=== PATIENT | male | born 1965 | race Caucasian/White ===

== ENCOUNTER 2025-01-31 21:28 | Emergency (ER) | payer SELFPAY ==
[~2025-01-31] VITALS: Ht 188 cm; Wt 104.0 kg
[2025-01-31 21:45] VITALS: O2SAT 98
[2025-01-31 23:09] LABS: CLARITY URINE CLEAR (CLEAR); COLOR URINE YELLOW (YELLOW); GLUCOSE URINE NEGATIVE (NEGATIVE); KETONES URINE TRACE (NEGATIVE); LEUKOCYTE ESTERASE URINE NEGATIVE (NEGATIVE); NITRITE URINE NEGATIVE (NEGATIVE); OCCULT BLOOD URINE 3+ (NEGATIVE); PROTEIN URINE 1+ (NEGATIVE); SPECIFIC GRAVITY URINE 1.023 (1.005-1.030)
[2025-01-31 23:29] LABS: BACTERIA URINE 1+; RBC URINE 50-100 /hpf (0-2); SQUAMOUS EPITHELIAL CELL URINE FEW /lpf (RARE/1+); WBC URINE 0-2 /hpf (0-2)
[2025-01-31] MEDS: KETOROLAC 30MG/ML VIAL IM ONE (23:39)
[2025-01-31] MEDS ORDERED: CLONIDINE 0.2MG TABLET PO ONE (23:45)
[2025-02-01 00:01] LABS: HEMATOCRIT. 45.9 % (42.0-52.0); HEMOGLOBIN. 15.6 g/dL (14.0-18.0); MEAN CORPUSCULAR HEMOGLOBIN 31.3 pg (28.0-32.0); MEAN CORPUSCULAR VOLUME 92.3 fL (80.0-94.0); MEAN PLATELET VOLUME 8.6 fl (7.4-10.4); PLATELET 211 x1000/uL (130-400); RED BLOOD CELL COUNT 4.97 mill/uL (4.7-6.1); RED CELL DISTRIBUTION WIDTH 13.9 % (11.6-14.6); WHITE BLOOD COUNT 10.5 x1000/uL (4.5-11.0)
[2025-02-01 00:05] LABS: CHLORIDE 104 mEq/L (98-107); POTASSIUM 4.5 mEq/L (3.5-5.1); SODIUM 141 mEq/L (136-145)
[2025-02-01 00:06] LABS: CARBON DIOXIDE 27 mEq/L (21-32)
[2025-02-01 00:07] LABS: CALCIUM 9.6 mg/dL (8.7-10.4)
[2025-02-01 00:08] LABS: DIFFERENTIAL COMMENT 1
[2025-02-01 00:11] LABS: CREATININE 1.5 mg/dL (0.6-1.3); GLUCOSE 158 mg/dL (70-105)
[2025-02-01 00:12] LABS: UREA NITROGEN BLOOD 23 mg/dL (9-23)
[2025-02-01 00:13] LABS: ALANINE AMINOTRANSFERASE 29 IU/L (10-49); ALBUMIN 4.6 g/dL (3.2-4.8); ASPARTATE AMINOTRANSFERASE 25 IU/L (<34)
[2025-02-01 00:14] LABS: BILIRUBIN DIRECT 0.2 mg/dL (<=3.0); BILIRUBIN TOTAL 0.7 mg/dL (0.1-1.0); PROTEIN TOTAL 7.4 g/dL (6.0-8.3)
[2025-02-01] MEDS: CLONIDINE 0.1MG TABLET PO NR (00:37)
[2025-02-01] MEDS ORDERED: IBUP-2028 MT (01:13)
[2025-02-01] MEDS ORDERED: TAMS-54 MT (01:19)
[2025-02-01 01:30] VITALS: BP 118/79; PULSE 80; RESP 16; TEMP 36.6; O2SAT 98
[2025-02-01 05:03] LABS: PLATELET ESTIMATE NORMAL
== END 2025-02-01 01:30 | disposition home or self-care (01) ==
LOC: ER 21:28
DX: N20.0 Calculus of kidney (principal); I10 Essential (primary) hypertension; Z79.899 Other long term (current) drug therapy
CPT/HCPCS: 99285; 80076; 80048; 81003; 83690; 85025; 36415; 96372; 74176; J1885